=== PATIENT | female | born 1985 | race Caucasian/White ===

== ENCOUNTER 2016-11-14 06:01 | Inpatient (IN) | payer OTHER ==
[~2016-11-14] VITALS: Ht 167.6 cm; Wt 84.1 kg
[~2016-11-14 06:01] MED LIST: DOCU240C31 PO; IBUP-1222 PO; OXYC-302 PO
[2016-11-14] MEDS ORDERED: OXYTOCIN 30U/ 0.9% NaCL 500ML 500 ML IV ONE (06:05)
[2016-11-14] MEDS: D5%-LACTATED RINGERS 1,000 ML IV SCH ×2 (06:05→14:05)
[2016-11-14] MEDS ORDERED: FENTANYL PF 100 MCG/2ML IV PRN (06:30)
[2016-11-14] MEDS ORDERED: CALCIUM CARBONATE 500 MG TAB.CHEW PO PRN (06:30)
[2016-11-14] MEDS ORDERED: FENTANYL PF 100 MCG/2ML IVPush PRN (06:30)
[2016-11-14] MEDS ORDERED: ONDANSETRON 2MG/ML, 2ML IVPush PRN (06:30)
[2016-11-14] MEDS ORDERED: TERBUTALINE 1 MG/ML, 1ML IVPush PRN (06:30)
[2016-11-14] MEDS ORDERED: OXYTOCIN 30U/ 0.9% NaCL 500ML 500 ML ONE (06:38)
[2016-11-14] MEDS ORDERED: OXYTOCIN 30U/ 0.9% NaCL 500ML 500 ML IV PRN (06:39)
[2016-11-14] MEDS: LACTATED RINGERS 1,000 ML IV SCH ×2 (06:44→08:50)
[2016-11-14] MEDS ORDERED: FENTANYL/BUPIV./NS/PF 250 ML EPIDCONT ONE ×2 (09:11→09:15)
[2016-11-14] MEDS ORDERED: LIDOCAINE/PF 1.5%-EPI 1:200K, 30ML ONE ×2 (09:12→09:15)
[2016-11-14] MEDS ORDERED: LIDOCAINE 1%, 20ML ONE (09:15)
[2016-11-14] MEDS ORDERED: LACTATED RINGERS 1,000 ML IV SCH (09:39)
[2016-11-14] MEDS ORDERED: FENTANYL/BUPIV./NS/PF 250 ML EPIDCONT SCH (09:39)
[2016-11-14] MEDS ORDERED: NALOXONE 0.4 MG/ML, 1ML IVPush PRN (10:00)
[2016-11-14] MEDS ORDERED: EPHEDRINE 50 MG/ML, 1ML IVPush PRN (10:00)
[2016-11-14] MEDS ORDERED: LACTATED RINGERS 1,000 ML IVBOLUS PRN (10:00)
[2016-11-14] MEDS: OXYTOCIN 30U/ 0.9% NaCL 500ML 500 ML IV SCH ×2 (12:04→22:04)
[2016-11-14] MEDS ORDERED: METOCLOPRAMIDE 5 MG/ML, 2ML IV PRN (12:30)
[2016-11-14] MEDS ORDERED: MISOPROSTOL 200 MCG TABLET PR PRN (12:30)
[2016-11-14] MEDS ORDERED: OXYcodone/APAP 5/325MG TABLET PO PRN (12:30)
[2016-11-14] MEDS ORDERED: ONDANSETRON 2MG/ML, 2ML IV PRN (12:30)
[2016-11-14] MEDS ORDERED: ACETAMINOPHEN 325 MG TABLET PO PRN ×2 (12:30)
[2016-11-14] MEDS ORDERED: CARBOPROST TROMETHAMINE 250 MCG/ML, 1ML IM PRN (12:30)
[2016-11-14] MEDS ORDERED: METHYLERGONOVINE 0.2 MG/ML IM PRN (12:30)
[2016-11-14] MEDS ORDERED: NEWBORN KIT ONE (13:51)
[2016-11-14] MEDS ORDERED: IBUPROFEN 600 MG TABLET ONE (14:29)
[2016-11-14] MEDS: IBUPROFEN 600 MG TABLET PO PRN ×2 (14:32→22:04)
[2016-11-14 16:00] VITALS: BP 125/76
[2016-11-14 19:15] VITALS: BP 115/69
[2016-11-14] MEDS: DOCUSATE 100 MG CAPSULE PO PRN (22:04)
[2016-11-15 00:05] VITALS: BP 92/49
[2016-11-15] MEDS: OXYTOCIN 30U/ 0.9% NaCL 500ML 500 ML IV SCH (04:46)
[2016-11-15 05:10] VITALS: BP 113/73
[2016-11-15] MEDS: IBUPROFEN 600 MG TABLET PO PRN ×2 (05:20→11:58)
[2016-11-15 07:30] VITALS: BP 108/70
[2016-11-15] MEDS ORDERED: PRENATAL VIT/IRON/FA 1 EACH TABLET PO SCH (09:00)
[2016-11-15] MEDS: DOCUSATE 100 MG CAPSULE PO PRN (11:58)
[2016-11-15 12:05] VITALS: BP 135/89
[2016-11-15] MEDS ORDERED: OXYC-302 PO (15:32)
[2016-11-15] MEDS ORDERED: SENN-1 PO (15:33)
== END 2016-11-15 17:58 | disposition home or self-care (01) | DRG 775 ==
LOC: LDIP 06:01 → 2NW 16:06
PROVIDERS: ADMIT Obstetrics & Gynecology; ATTEND Obstetrics & Gynecology
PROC: 10E0XZZ Delivery of Products of Conception, External Approach (ICD-10-PCS; principal; 2016-11-14)
PROC: 10907ZC Drainage of Amniotic Fluid, Therapeutic from Products of Conception, Via Natural or Artificial Opening (ICD-10-PCS; 2016-11-14)
PROC: 3E0R3CZ (ICD-10-PCS; 2016-11-14)
PROC: 00HU33Z Insertion of Infusion Device into Spinal Canal, Percutaneous Approach (ICD-10-PCS; 2016-11-14)
PROC: 3E033VJ Introduction of Other Hormone into Peripheral Vein, Percutaneous Approach (ICD-10-PCS; 2016-11-14)
DX: O76 Abnormality in fetal heart rate and rhythm complicating labor and delivery (principal); Z37.0 Single live birth; Z3A.39 39 weeks gestation of pregnancy; Z79.82 Long term (current) use of aspirin; Z88.0 Allergy status to penicillin
CPT/HCPCS: 36415; 85025; 86850; 86900; J3490; J2590; J3010; J7120